=== PATIENT | female | born 1965 | race Caucasian/White ===

== ENCOUNTER 2022-02-16 17:03 | Inpatient (IN) | payer SELFPAY ==
[~2022-02-16] VITALS: Ht 160 cm; Wt 49.9 kg
[~2022-02-16 17:03] MED LIST: DIVA-112 PO; HALO5TAB2 PO
[2022-02-16] MEDS ORDERED: LORazepam 2 MG/ML VIAL IM ONE (20:00)
[2022-02-16] MEDS ORDERED: HALOPERIDOL LACTATE 5 MG/ML VIAL IM ONE (20:00)
[2022-02-16] MEDS ORDERED: DiphenhydrAMINE HCL 50 MG/ML VIAL IM ONE (20:00)
[2022-02-16 20:26] LABS: BASOPHILS % (AUTO) 0.5 % (0.0-2.0); HEMATOCRIT 40.3 % (36-46); HEMOGLOBIN 13.7 g/dL (12.0-16.0); LYMPHOCYTES # (AUTO) 2.4 K/uL (1.0-4.8); LYMPHOCYTES % (AUTO) 25.8 % (22.0-44.0); MEAN CORPUSCULAR HEMOGLOBIN 30.8 pg (26.0-34.0); MEAN CORPUSCULAR HGB CONC 34.1 G/dL (31.0-37.0); MEAN CORPUSCULAR VOLUME 90 fL (80-100); MONOCYTES # (AUTO) 0.7 K/uL (0.1-1.0); MONOCYTES % (AUTO) 7.1 % (2.0-9.0); NEUTROPHILS # (AUTO) 6.1 K/uL (1.8-7.7); NEUTROPHILS % (AUTO) 65.6 % (40.0-70.0); PLATELET COUNT (AUTO) 330 K/uL (150-450); RED BLOOD CELL COUNT(AUTO) 4.46 MIL/uL (4.00-5.20); RED CELL DISTRIBUTION WIDTH 12.7 % (11.5-14.5)
[2022-02-16 20:33] LABS: COVID AG,FIA SOURCE NASOPHARYNGEAL
[2022-02-16 20:44] LABS: ANION GAP 9 mmol/L (8-16); CALCIUM, TOTAL 9.8 mg/dL (8.8-10.5); CARBON DIOXIDE 28 mmol/L (22-29); CHLORIDE 102 mmol/L (98-107); CREATININE 0.83 mg/dL (0.60-1.30); GLOMERULAR FILTR. RATE CALC > 60 mL/min (>60); GLUCOSE,RANDOM 97 mg/dL (70-110); POTASSIUM 4.1 mmol/L (3.5-5.1); SODIUM SERUM 139 mmol/L (136-145); UREA NITROGEN, BLOOD 32 mg/dL (7-18)
[2022-02-16 20:50] LABS: ALANINE AMINOTRANSFERASE 32 U/L (12-78); ALBUMIN 3.6 g/dL (3.4-5.0); ALKALINE PHOSPHATASE 81 U/L (46-116); ASPARTATE AMINOTRANSFERASE 31 U/L (15-37); BILIRUBIN,TOTAL 0.3 mg/dL (0.1-1.0); TOTAL PROTEIN, SERUM 7.5 g/dL (6.4-8.2); VALPROIC ACID < 3 mcg/mL (50-100)
[2022-02-16] MEDS ORDERED: LORazepam 2 MG TABLET PO PRN (23:15)
[2022-02-16] MEDS ORDERED: OLANZapine 5 MG RAPDIS TABLET PO PRN (23:15)
[2022-02-16] MEDS ORDERED: ZOLPIDEM TARTRATE 10 MG TABLET PO PRN (23:15)
[2022-02-17 08:27] VITALS: BP 138/81
[2022-02-17 16:22] VITALS: BP 129/66
[2022-02-17] MEDS ORDERED: LOPERAMIDE HCL 2 MG CAPSULE PO PRN (23:00)
[2022-02-17] MEDS ORDERED: MAGNESIUM HYDROXIDE SUSPENSION 30 ML UDCUP PO PRN (23:00)
[2022-02-17] MEDS ORDERED: HydrOXYzine PAMOATE 50 MG CAPSULE PO PRN (23:00)
[2022-02-17] MEDS ORDERED: ACETAMINOPHEN 325 MG TABLET PO PRN (23:00)
[2022-02-17] MEDS ORDERED: MAG HYDROX/AL HYDROX/SIMETH ES 30 ML SUSPENSION UDCUP PO PRN (23:00)
[2022-02-17] MEDS ORDERED: GuaiFENesin/D-METHORPHAN [SUGAR-FREE] 200-20MG/10 ML SYRUP UDCUP PO PRN (23:00)
[2022-02-17] MEDS ORDERED: TUBERCULIN, PURIFIED PROTEIN DERIVATIVE 5 TU/0.1 ML SYRINGE ID ONE (23:00)
[2022-02-18 07:09] LABS: HEMOGLOBIN A1C 5.7 % (3.8-5.6)
[2022-02-18 07:19] LABS: CHOL/HDL RATIO 2.4 (3.9-5.7); FREE T4 (FREE THYROXINE) 0.92 ng/dL (0.76-1.46); THYROID STIMULATING HORMONE 1.11 uIU/mL (0.36-3.74)
[2022-02-18] MEDS ORDERED: PALIPERIDONE PALMITATE 234 MG/1.5 ML SYRINGE IM ONE (09:00)
[2022-02-18] MEDS: FOLIC ACID 1 MG TABLET PO SCH (09:32)
[2022-02-18] MEDS: OMEGA-3/DHA/EPA/FISH OIL 1,000 MG CAPSULE PO SCH (09:32)
[2022-02-18] MEDS: NALTREXONE HCL 50 MG TABLET PO SCH (09:32)
[2022-02-18] MEDS: MULTIVITAMINS WITH MINERALS, THERAPEUTIC TABLET PO SCH (09:32)
[2022-02-18] MEDS: THIAMINE 100 MG TABLET PO SCH ×2 (09:33→16:38)
[2022-02-18 17:02] VITALS: BP 115/73
[2022-02-18] MEDS ORDERED: PALIPERIDONE 3 MG ER TABLET PO SCH (21:00)
[2022-02-18] MEDS ORDERED: MELATONIN 5 MG TABLET PO SCH (21:00)
[2022-02-19] MEDS: OMEGA-3/DHA/EPA/FISH OIL 1,000 MG CAPSULE PO SCH (08:15)
[2022-02-19] MEDS: MULTIVITAMINS WITH MINERALS, THERAPEUTIC TABLET PO SCH (08:15)
[2022-02-19] MEDS: THIAMINE 100 MG TABLET PO SCH (08:15)
[2022-02-19] MEDS: NALTREXONE HCL 50 MG TABLET PO SCH (08:15)
[2022-02-19] MEDS: FOLIC ACID 1 MG TABLET PO SCH (08:17)
[2022-02-19] MEDS ORDERED: OMEG-135 PO (11:55)
[2022-02-19] MEDS ORDERED: MELA5TAB40 PO (11:55)
[2022-02-19] MEDS ORDERED: NALT50TA PO (11:55)
[2022-02-19] MEDS ORDERED: PALI117D IM (11:55)
[2022-02-22] MEDS ORDERED: PALIPERIDONE PALMITATE 156 MG/ML SYRINGE IM ONE (09:00)
== END 2022-02-19 13:00 | disposition home or self-care (01) | DRG 885 ==
LOC: EMS 17:12 → 3EC 02-17 00:50
PROVIDERS: ADMIT Psychiatry & Neurology Psychiatry; ATTEND Psychiatry & Neurology Psychiatry
DX: F20.9 Schizophrenia, unspecified (principal); D64.9 Anemia, unspecified; E78.00 Pure hypercholesterolemia, unspecified; F17.200 Nicotine dependence, unspecified, uncomplicated; J44.9 Chronic obstructive pulmonary disease, unspecified; Z20.822 Contact with and (suspected) exposure to COVID-19; K20.90 Esophagitis, unspecified without bleeding; Z55.9 Problems related to education and literacy, unspecified; Z59.00 Homelessness unspecified; Z63.9 Problem related to primary support group, unspecified; Z65.3 Problems related to other legal circumstances; Z87.442 Personal history of urinary calculi; Z88.0 Allergy status to penicillin; Z91.199 Patient's noncompliance with other medical treatment and regimen due to unspecified reason; Z90.49 Acquired absence of other specified parts of digestive tract
CPT/HCPCS: 80053; 80061; 80164; 83036; 84439; 84443; 85025; 86592; 99291; G0480; J1200; J1630; J2060; Q9967